=== PATIENT | female | born 1945 | race Caucasian/White ===

== ENCOUNTER 2021-10-10 05:40 | Day surgery (SDC) | payer MEDICARE ==
[~2021-10-10] VITALS: Ht 158 cm; Wt 52.0 kg
[~2021-10-10 05:40] MED LIST: IBUPROFEN400 MG PO; LIPITOR20 MG PO; LISINOPRIL-HCT1 EAC1 PO; MELATONIN5 M2 PO; SYNTHROID25 MCG PO
--- NOTE | 2021-10-10 13:37 | NUR ---
PT HAD A LTKR THIS DATE. PT. WILL RETURN HOME. SHE REQUESTED [facility] OUT[facility]. FIRST APPT. IS 10/12/21 @ 8:00 A[facility] TO DELIVER A ROLLING WALKER AND 01/30 UPON DISCHARGE.
[2021-10-11 06:57] LABS: BASOPHIL 0.1 % (0-2); EOSINOPHIL 0.1 % (0-7); HCT 30.7 % (37.0-47.0); HGB 10.1 g/dl (12.5-16.0); MCHC 32.9 g/dL (32.0-36.0); MCV 88.2 fL (78.0-100.0); MONOCYTE 6.3 % (0-12); NRBC 0; PLT 246 K/uL (150-400); RBC 3.48 M/uL (4.20-5.40); RDW 13.9 % (11.5-14.0); WBC 8.4 K/uL (4.0-10.5)
[2021-10-11 07:27] LABS: BUN/CREAT RATIO (CALC) 20.9 RATIO; CREATININE 0.67 mg/dL (0.51-0.95); POTASSIUM 3.8 mmol/L (3.5-5.1)
[2021-10-11] MEDS ORDERED: CHILDREN'S ASPI81 MG PO (09:06)
[2021-10-11] MEDS ORDERED: OXYCODONE-ACET1 EAC1 PO (09:06)
[2021-10-11] MEDS ORDERED: FEOSOL325 MG PO (09:06)
== END 2021-10-11 12:23 | disposition home health service (06) ==
LOC: FAS 05:40 → FMS 05:40 → FAS 07:00 → FMS 07:22 → FAS 10-11 12:23
PROVIDERS: Orthopaedic Surgery
DX: M17.0 Bilateral primary osteoarthritis of knee (principal); M21.162 Varus deformity, not elsewhere classified, left knee; M21.161 Varus deformity, not elsewhere classified, right knee; M85.862 Other specified disorders of bone density and structure, left lower leg; I10 Essential (primary) hypertension; E78.5 Hyperlipidemia, unspecified; E03.9 Hypothyroidism, unspecified; Z79.1 Long term (current) use of non-steroidal anti-inflammatories (NSAID); Z79.82 Long term (current) use of aspirin; Z79.899 Other long term (current) drug therapy
CPT/HCPCS: 36415; 73560; 80048; 85025; 86850; 86900; 86901; 97110; 97162; 97166; 97530-GP; 97535; C1713; C1776; J0171; J0697; J1100; J1170; J1885; J2250; J2270; J2405; J2704; J2795; J3010; J7120

== ENCOUNTER 2022-03-14 16:46 | Emergency (ER) | payer OTHER, MEDICARE ==
[~2022-03-14 16:46] MED LIST changes: +CENTRUM SILVER1 EAC4 PO; +CHILDREN'S ASPI81 MG PO; +FEOSOL325 MG PO; +OXYCODONE-ACET1 EAC1 PO
== END 2022-03-14 18:54 | disposition home or self-care (01) ==
LOC: FER 16:46
DX: Z04.1 Encounter for examination and observation following transport accident (principal); I10 Essential (primary) hypertension; Z28.310 Unvaccinated for COVID-19
CPT/HCPCS: 99283